=== PATIENT | male | born 1935 | race Caucasian/White ===

== ENCOUNTER 2024-11-06 04:43 | Emergency (ER) | payer MEDICARE ==
[~2024-11-06] VITALS: Ht 167.6 cm; Wt 81.6 kg
[2024-11-06 05:40] LABS: BASOPHILS % (AUTO) 0.5 % (0.0-2.0); EOSINOPHILS # (AUTO) 0.2 K/uL (0.0-0.7); EOSINOPHILS % (AUTO) 3.2 % (0.0-6.0); HEMATOCRIT 36 % (39-51); HEMOGLOBIN 12.3 g/dL (13.5-17.5); LYMPHOCYTES # (AUTO) 1.3 K/uL (0.8-4.8); LYMPHOCYTES % (AUTO) 25.3 % (20.0-44.0); MEAN CORPUSCULAR HEMOGLOBIN 30 PG (26.0-33.0); MEAN CORPUSCULAR HGB CONC 34 g/dl (31.0-36.0); MEAN CORPUSCULAR VOLUME 88 fL (80-96); MONOCYTES # (AUTO) 0.6 K/uL (0.1-1.30); MONOCYTES % (AUTO) 10.8 % (2.0-12.0); NEUTROPHILS # (AUTO) 3.2 K/uL (1.8-8.9); NEUTROPHILS % (AUTO) 60.2 % (43.0-81.0); PLATELET COUNT (AUTO) 167 K/uL (150-450); RED BLOOD CELL COUNT(AUTO) 4.08 MIL/uL (4.5-6.0); WHITE BLOOD COUNT (AUTO) 5.3 K/uL (4.3-11.0)
[2024-11-06 05:42] LABS: CALCIUM, SERUM 8.3 mg/dL (8.5-10.1); POTASSIUM 3.9 mmol/L (3.5-5.1)
[2024-11-06 05:48] LABS: ALBUMIN 3.4 g/dL (3.4-5.0); BILIRUBIN,DIRECT 0.2 mg/dL (0.0-0.2); BILIRUBIN,TOTAL 0.8 mg/dL (0.2-1.0); TOTAL PROTEIN, SERUM 6.9 g/dL (6.4-8.2)
[2024-11-06] MEDS ORDERED: HYDR-500 PO (05:56)
[2024-11-06] MEDS ORDERED: hydrOXYzine 10 MG TABLET ONE (06:03)
[2024-11-06] MEDS: hydrOXYzine 10 MG TABLET PO ONE (06:03)
[2024-11-06 06:15] VITALS: BP 138/88; TEMP 98.1; O2SAT 98
[2024-11-06 06:59] LABS: APPEARANCE,URINE CLEAR (CLEAR); BILIRUBIN,URINE NEGATIVE (NEGATIVE); BLOOD, URINE 1+ Ery/uL (NEGATIVE); COLOR,URINE YELLOW (YELLOW); KETONES,URINE NEGATIVE (NEGATIVE); LEUKOCYTE ESTERASE ,URINE 2+ (NEGATIVE); NITRITE, URINE NEGATIVE (NEGATIVE); PROTEIN,URINE NEGATIVE (NEGATIVE); UGLUCOSE NEGATIVE (NEGATIVE); UROBILINOGEN,URINE 0.2 EU/dL (0.2)
[2024-11-06 07:04] LABS: ADD URINE CULTURE YES; BACTERIA,URINE Few /HPF (None Seen); SQUAMOUS EPITHELIAL CELL,UR Rare /HPF (None Seen); WBC,URINE 21-50 /HPF (0-3)
== END 2024-11-06 07:02 | disposition home or self-care (01) ==
LOC: ER 04:45
DX: L29.9 Pruritus, unspecified (principal); T45.1X5A Adverse effect of antineoplastic and immunosuppressive drugs, initial encounter; C61 Malignant neoplasm of prostate; Y92.89 Other specified places as the place of occurrence of the external cause
CPT/HCPCS: 99283; 85025; 80048; 87086; 83690; 80076; 81001; 36415; Q0177

== ENCOUNTER 2025-03-01 18:57 | Inpatient (IN) | payer MEDICARE, OTHER ==
[~2025-03-01] VITALS: Ht 167.6 cm; Wt 82.6 kg
[~2025-03-01 18:57] MED LIST: HYDR-500 PO
[2025-03-01] MEDS: ALBUTEROL FS 2.5 MG/3 ML VIAL.NEB NEB ONE (19:14)
[2025-03-01] MEDS ORDERED: FUROSEMIDE 40 MG/4 ML VIAL ONE (19:17)
[2025-03-01] MEDS: FUROSEMIDE 40 MG/4 ML VIAL IV ONE (19:19)
[2025-03-01] MEDS ORDERED: ALBUTEROL FS 2.5 MG/3 ML VIAL.NEB ONE (19:24)
[2025-03-01 19:32] VITALS: O2SAT 96
[2025-03-01 19:36] LABS: BASOPHILS # (AUTO) 0.1 K/uL (0.0-0.2); BASOPHILS % (AUTO) 0.5 % (0.0-2.0); EOSINOPHILS % (AUTO) 0.4 % (0.0-6.0); HEMATOCRIT 40 % (39-51); HEMOGLOBIN 13.3 g/dL (13.5-17.5); LYMPHOCYTES # (AUTO) 2.5 K/uL (0.8-4.8); LYMPHOCYTES % (AUTO) 20.5 % (20.0-44.0); MEAN CORPUSCULAR HEMOGLOBIN 29 PG (26.0-33.0); MEAN CORPUSCULAR HGB CONC 34 g/dl (31.0-36.0); MEAN CORPUSCULAR VOLUME 87 fL (80-96); MONOCYTES # (AUTO) 0.4 K/uL (0.1-1.30); MONOCYTES % (AUTO) 3.4 % (2.0-12.0); NEUTROPHILS # (AUTO) 9.1 K/uL (1.8-8.9); NEUTROPHILS % (AUTO) 75.2 % (43.0-81.0); PLATELET COUNT (AUTO) 214 K/uL (150-450); RED BLOOD CELL COUNT(AUTO) 4.56 MIL/uL (4.5-6.0); RED CELL DISTRIBUTION WIDTH 14.7 % (11.5-15.0); WHITE BLOOD COUNT (AUTO) 12.1 K/uL (4.3-11.0)
[2025-03-01 19:42] LABS: CALCIUM, SERUM 8.8 mg/dL (8.5-10.1); CARBON DIOXIDE 23 mmol/L (21-32); CHLORIDE 106 mmol/L (98-107); CREATININE 1.1 mg/dL (0.6-1.3); GLUCOSE 167 mg/dL (74-106); POTASSIUM 3.3 mmol/L (3.5-5.1); SODIUM SERUM 141 mmol/L (136-145); UREA NITROGEN, BLOOD 17 mg/dL (7-18)
[2025-03-01 19:47] VITALS: O2SAT 91; O2SAT 92
[2025-03-01] MEDS ORDERED: METOPROLOL TARTRATE INJ 5 MG/5 ML AMPUL ONE (19:47)
[2025-03-01 19:51] LABS: ABG BASE EXCESS -3.2 mmol/L (-2.0-3.0); ABG OXYGEN SATURATION 96.7 % (94.0-98.0); ABG PCO2 29.7 mmHg (35.0-48.0); ABG PO2 87.8 mmHg (83.0-108.0); ABG TOTAL HEMOGLOBIN 13.8 G/dL (13.5-17.5); COHb 0.1 % (0.5-1.5); MetHb 0.2 % (0.0-1.5); O2Hb 96.4 % (94.0-97.0); SITE, ABG LEFT RADIAL
[2025-03-01 19:52] LABS: LACTIC ACID 2.5 mmol/L (0.4-2.0)
[2025-03-01 19:55] LABS: ALANINE AMINOTRANSFERASE 12 U/L (12-78); ALBUMIN 3.9 g/dL (3.4-5.0); ALKALINE PHOSPHATASE 52 U/L (46-116); ASPARTATE AMINOTRANSFERASE 16 U/L (15-37); BILIRUBIN,TOTAL 0.9 mg/dL (0.2-1.0); MAGNESIUM 2.1 mg/dL (1.8-2.4); NT-PRO BNP 401 pg/mL (0-125)
[2025-03-01] MEDS: METOPROLOL TARTRATE INJ 5 MG/5 ML AMPUL IV ONE (19:56)
[2025-03-01 20:12] LABS: BILIRUBIN,DIRECT 0.2 mg/dL (0.0-0.2)
[2025-03-01 20:35] LABS: INR 1.03 (0.91-1.10); PARTIAL THROMBOPLASTIN TIME 26.2 SEC (24.3-34.3); PROTHROMBIN TIME 10.9 SECS (9.2-11.1)
[2025-03-01] MEDS ORDERED: POTASSIUM CL. PREMIX PERIPHER. 50 ML ONE (20:36)
[2025-03-01] MEDS: POTASSIUM CL. PREMIX PERIPHER. 50 ML IV SCH (20:40)
[2025-03-01] MEDS ORDERED: PIPERACI/TAZO 3.375GM/D5W 50ML PB IV ONE (20:45)
[2025-03-01] MEDS ORDERED: VANCOMYCIN 1 GM /D5W 250 ML PB IV ONE (20:47)
[2025-03-01] MEDS ORDERED: AZITHROMYCIN 500 MG VIAL ONE (20:50)
[2025-03-01] MEDS: PIPERACILLIN /TAZOBACTAM 3.375 G in IV D5W 50 ML IV ONE (20:53)
[2025-03-01 21:00] LABS: APPEARANCE,URINE CLEAR (CLEAR); BILIRUBIN,URINE NEGATIVE (NEGATIVE); BLOOD, URINE 1+ Ery/uL (NEGATIVE); COLOR,URINE YELLOW (YELLOW); KETONES,URINE NEGATIVE (NEGATIVE); LEUKOCYTE ESTERASE ,URINE NEGATIVE (NEGATIVE); NITRITE, URINE NEGATIVE (NEGATIVE); PROTEIN,URINE TRACE mg/dl (NEGATIVE); UGLUCOSE NEGATIVE (NEGATIVE); UROBILINOGEN,URINE 0.2 EU/dL (0.2)
[2025-03-01 21:29] LABS: ADD URINE CULTURE NO; BACTERIA,URINE None seen /HPF (None Seen); WBC,URINE 0-2 /HPF (0-3)
[2025-03-01 21:30] LABS: MUCUS,URINE Few /LPF (None Seen)
[2025-03-01] MEDS: AZITHROMYCIN 500 MG in IV D5W 250 ML IV ONE (21:50)
[2025-03-01] MEDS: IV NS 0.9% 1,000 ML IV ONE (22:40)
[2025-03-02] VITALS (8 sets, daily range): BP systolic 103–118; BP diastolic 50–61; TEMP 99–99.7; O2SAT 92–98
[2025-03-02] MEDS: DOXYCYCLINE HYCLATE (100 MG) 100 MG TABLET PO SCH (01:00)
[2025-03-02] MEDS ORDERED: MAGNESIUM HYDROXIDE 30 ML UDC PO PRN (01:00)
[2025-03-02] MEDS ORDERED: Z GUARD REMEDY 4 OZ OINT TP PRN (01:00)
[2025-03-02] MEDS ORDERED: ACETAMINOPHEN 325 MG TABLET PO PRN (01:00)
[2025-03-02] MEDS: CEFEPIME 2 GM in IV D5W 100 ML IV SCH (01:00)
[2025-03-02] MEDS: ENOXAPARIN SODIUM 40 MG/0.4 ML DISP.SYRIN SQ SCH (01:00)
[2025-03-02] MEDS ORDERED: ONDANSETRON HCL/PF 4 MG/2 ML VIAL IVP PRN (01:00)
[2025-03-02] MEDS ORDERED: LEVALBUTEROL HCL NEB 1.25 MG/0.5 ML VIAL.NEB NEB PRN (01:30)
[2025-03-02] MEDS ORDERED: IPRATROPIUM NEB FS 0.5 MG/2.5 ML AMPUL.NEB NEB SCH (01:30)
[2025-03-02] MEDS ORDERED: ENOXAPARIN SODIUM 40 MG/0.4 ML DISP.SYRIN SQ ONE (03:37)
[2025-03-02] MEDS ORDERED: CEFEPIME 1 GM VIAL ONE (03:37)
[2025-03-02] MEDS ORDERED: DOXYCYCLINE HYCLATE (100 MG) 100 MG TABLET ONE (03:38)
[2025-03-02] MEDS: IV 1/2NS 1000 ML 1,000 ML IV PRN (06:29)
[2025-03-02] MEDS: PANTOPRAZOLE 40 MG TABLET.DR PO SCH (07:52)
[2025-03-02] MEDS: ALBUTEROL FS 2.5 MG/3 ML VIAL.NEB NEB SCH (13:30)
[2025-03-02] MEDS: IPRATROPIUM NEB FS 0.5 MG/2.5 ML AMPUL.NEB NEB SCH (13:30)
[2025-03-02] MEDS: ENOXAPARIN SODIUM 40 MG/0.4 ML DISP.SYRIN SQ ONE (14:10)
[2025-03-02] MEDS ORDERED: CT SWABBABLE VALVE TRANS SET 1 EA INFUS.SET MC ONE (14:24)
[2025-03-02] MEDS ORDERED: IOHEXOL-350 100 ML VIAL IV ONE (14:24)
[2025-03-02] MEDS: ATORVASTATIN 10 MG TABLET PO SCH (21:48)
[2025-03-02] MEDS: ENOXAPARIN SODIUM 80 MG/0.8 ML DISP.SYRIN SQ SCH (21:49)
[2025-03-03] VITALS (13 sets, daily range): BP systolic 103–136; BP diastolic 45–80; TEMP 97.9–98.8; O2SAT 93–100
[2025-03-03 08:01] LABS: BASOPHILS % (AUTO) 0.4 % (0.0-2.0); EOSINOPHILS % (AUTO) 0.1 % (0.0-6.0); HEMATOCRIT 37 % (39-51); HEMOGLOBIN 12.3 g/dL (13.5-17.5); LYMPHOCYTES # (AUTO) 0.9 K/uL (0.8-4.8); LYMPHOCYTES % (AUTO) 8.8 % (20.0-44.0); MEAN CORPUSCULAR HEMOGLOBIN 29 PG (26.0-33.0); MEAN CORPUSCULAR HGB CONC 33 g/dl (31.0-36.0); MEAN CORPUSCULAR VOLUME 88 fL (80-96); MONOCYTES # (AUTO) 0.4 K/uL (0.1-1.30); NEUTROPHILS # (AUTO) 8.4 K/uL (1.8-8.9); NEUTROPHILS % (AUTO) 86.7 % (43.0-81.0); PLATELET COUNT (AUTO) 160 K/uL (150-450); RED BLOOD CELL COUNT(AUTO) 4.19 MIL/uL (4.5-6.0); RED CELL DISTRIBUTION WIDTH 14.4 % (11.5-15.0); WHITE BLOOD COUNT (AUTO) 9.7 K/uL (4.3-11.0)
[2025-03-03 08:26] LABS: CALCIUM, SERUM 8.2 mg/dL (8.5-10.1); CREATININE 1.3 mg/dL (0.6-1.3); PHOSPHORUS 2.3 mg/dL (2.5-4.9); POTASSIUM 3.5 mmol/L (3.5-5.1)
[2025-03-03 08:31] LABS: LACTIC ACID 1.9 mmol/L (0.4-2.0)
[2025-03-03] MEDS: K PHOS NEUTRAL 250 MG TABLET PO ONE (16:35)
[2025-03-04] VITALS (9 sets, daily range): BP systolic 107–130; BP diastolic 50–58; TEMP 97.9–98.2; O2SAT 95–100
[2025-03-04 07:38] LABS: BASOPHILS % (AUTO) 0.4 % (0.0-2.0); EOSINOPHILS % (AUTO) 0.4 % (0.0-6.0); HEMATOCRIT 34 % (39-51); HEMOGLOBIN 11.7 g/dL (13.5-17.5); LYMPHOCYTES # (AUTO) 0.7 K/uL (0.8-4.8); LYMPHOCYTES % (AUTO) 8.7 % (20.0-44.0); MEAN CORPUSCULAR HEMOGLOBIN 30 PG (26.0-33.0); MEAN CORPUSCULAR HGB CONC 34 g/dl (31.0-36.0); MEAN CORPUSCULAR VOLUME 88 fL (80-96); MONOCYTES # (AUTO) 0.5 K/uL (0.1-1.30); NEUTROPHILS # (AUTO) 6.4 K/uL (1.8-8.9); NEUTROPHILS % (AUTO) 84.5 % (43.0-81.0); PLATELET COUNT (AUTO) 147 K/uL (150-450); RED BLOOD CELL COUNT(AUTO) 3.92 MIL/uL (4.5-6.0); RED CELL DISTRIBUTION WIDTH 14.3 % (11.5-15.0); WHITE BLOOD COUNT (AUTO) 7.6 K/uL (4.3-11.0)
[2025-03-04 07:48] LABS: CALCIUM, SERUM 8.3 mg/dL (8.5-10.1); CREATININE 1.2 mg/dL (0.6-1.3); MAGNESIUM 2.1 mg/dL (1.8-2.4); PHOSPHORUS 2.1 mg/dL (2.5-4.9); POTASSIUM 3.4 mmol/L (3.5-5.1)
[2025-03-04] MEDS: POTASSIUM CHLORIDE 20 MEQ TAB.PRT.SR PO SCH (10:32)
[2025-03-04] MEDS ORDERED: PANT40TA49 PO (11:25)
[2025-03-04] MEDS ORDERED: LEVO500T90 PO (11:25)
[2025-03-04] MEDS ORDERED: APIX5TAB4 PO (11:25)
[2025-03-04] MEDS ORDERED: ATOR10TA PO (11:25)
[2025-03-04] MEDS ORDERED: K PHOS NEUTRAL 250 MG TABLET PO ONE (16:00)
== END 2025-03-04 17:45 | disposition home health service (06) | DRG 871 ==
LOC: ER 18:59 → TELE1 03-02 01:15 → MEDSG1 03-04 11:31
PROVIDERS: ADMIT Nurse Practitioner Family; ATTEND Student in an Organized Health Care Education/Training Program
DX: A41.9 Sepsis, unspecified organism (principal); J15.69 Pneumonia due to other Gram-negative bacteria; J15.9 Unspecified bacterial pneumonia; J96.01 Acute respiratory failure with hypoxia; E87.20 Acidosis, unspecified; I82.413 Acute embolism and thrombosis of femoral vein, bilateral; N39.0 Urinary tract infection, site not specified; E87.6 Hypokalemia; K80.20 Calculus of gallbladder without cholecystitis without obstruction; R65.20 Severe sepsis without septic shock; C61 Malignant neoplasm of prostate; I10 Essential (primary) hypertension; I25.10 Atherosclerotic heart disease of native coronary artery without angina pectoris; I77.810 Thoracic aortic ectasia; B96.4 Proteus (mirabilis) (morganii) as the cause of diseases classified elsewhere; Z79.60 Long term (current) use of unspecified immunomodulators and immunosuppressants
CPT/HCPCS: 36415; 36600; 71045-TC; 76700-TC; 80048-TC; 80053-TC; 80061-TC; 80076-TC; 81001; 82803-TC; 83605-TC; 83735-TC; 83880; 84100-TC; 84484-TC; 85025-TC; 85730-TC; 87040-TC; 87081-TC; 87086-TC; 87186-TC; 93307-TC; 93970-TC; 94760-TC; 94799-TC; 97112-TC; 97116-TC; 97530-TC; A4223; G0378; J0456; J0692; J1650; J1938; J2543; J3370; J3480; J3490; J7030; J7060; Q9967

== ENCOUNTER 2025-07-21 03:39 | Inpatient (IN) | payer MEDICARE, OTHER ==
[2025-07-21] VITALS (8 sets, daily range): BP systolic 122–129; BP diastolic 64–73; TEMP 97.7–98; O2SAT 95–99
[~2025-07-21] VITALS: Ht 167.6 cm; Wt 70.8 kg
[~2025-07-21 03:39] MED LIST changes: +APIX5TAB4 PO; +ATOR10TA PO; +LEVO500T90 PO; +PANT40TA49 PO
[2025-07-21 04:02] LABS: PLATELET COUNT (AUTO) 240 K/uL (150-450); RED BLOOD CELL COUNT(AUTO) 3.85 MIL/uL (4.5-6.0); RED CELL DISTRIBUTION WIDTH 19.5 % (11.5-15.0); WHITE BLOOD COUNT (AUTO) 7.8 K/uL (4.3-11.0)
[2025-07-21 04:09] LABS: CALCIUM, SERUM 8.3 mg/dL (8.5-10.1); CREATININE 1.3 mg/dL (0.6-1.3); SODIUM SERUM 142.0 mmol/L (136-145); UREA NITROGEN, BLOOD 14.0 mg/dL (7-18)
[2025-07-21 04:15] LABS: ABG BASE EXCESS 0.2 mmol/L (-2.0-3.0); ABG OXYGEN SATURATION 93.6 % (94.0-98.0); ABG PCO2 32.4 mmHg (35.0-48.0); ABG PH 7.472 (7.350-7.450); ABG PO2 70.6 mmHg (83.0-108.0); ABG TOTAL HEMOGLOBIN 12.4 G/dL (13.5-17.5); FLOW, BLOOD GAS 3.00 L/min (0.00-30.00); FRACTIONATED INSPIRED OXYGEN 32.0 %; SITE, ABG LEFT RADIAL
[2025-07-21 04:24] LABS: ASPARTATE AMINOTRANSFERASE 34.0 U/L (15-37); NT-PRO BNP 3024.0 pg/mL (0-125); TOTAL PROTEIN, SERUM 7.3 g/dL (6.4-8.2)
[2025-07-21] MEDS ORDERED: FUROSEMIDE 40 MG/4 ML VIAL ONE (04:49)
[2025-07-21] MEDS ORDERED: POTASSIUM CHLORIDE 20 MEQ TAB.PRT.SR PO ONE (04:49)
[2025-07-21] MEDS ORDERED: Z GUARD REMEDY 4 OZ OINT TP PRN (05:00)
[2025-07-21] MEDS ORDERED: MAG HYDROX/AL HYDROX/SIMETH 30 ML UDC PO PRN (05:00)
[2025-07-21] MEDS ORDERED: ACETAMINOPHEN 325 MG TABLET PO PRN (05:00)
[2025-07-21] MEDS ORDERED: MAGNESIUM HYDROXIDE 30 ML UDC PO PRN (05:00)
[2025-07-21] MEDS ORDERED: ONDANSETRON HCL/PF 4 MG/2 ML VIAL IVP PRN (05:00)
[2025-07-21] MEDS: FUROSEMIDE 40 MG/4 ML VIAL IV ONE (05:01)
[2025-07-21] MEDS: POTASSIUM CHLORIDE 20 MEQ TAB.PRT.SR PO ONE (05:01)
[2025-07-21 05:13] LABS: LYMPHOCYTES % (MANUAL) 18 % (16-48); MONOCYTES % (MANUAL) 13 % (0-11.0); MYELOCYTES % 1 % (0-0); NEUTROPHILS % (MANUAL) 68 (42-76)
[2025-07-21 05:14] LABS: PLATELET ESTIMATE ADEQUATE
[2025-07-21] MEDS ORDERED: ENOX40DI SQ (07:55)
[2025-07-21] MEDS ORDERED: VALS1TAB7 PO (07:55)
[2025-07-21] MEDS ORDERED: ABIR250T2 PO (07:55)
[2025-07-21] MEDS ORDERED: SPIR25TA6 PO (07:55)
[2025-07-21] MEDS ORDERED: DONE10TA44 PO (07:55)
[2025-07-21] MEDS ORDERED: OLAP150T PO (07:55)
[2025-07-21] MEDS ORDERED: AMLO-213 PO (07:55)
[2025-07-21] MEDS ORDERED: EPOE4000 SQ (07:55)
[2025-07-21] MEDS ORDERED: IPRA3AMP23 IH (07:55)
[2025-07-21] MEDS ORDERED: ROSU10TA2 PO (07:55)
[2025-07-21] MEDS ORDERED: TAMS-12 PO (07:55)
[2025-07-21] MEDS ORDERED: METO25TA4 PO (07:55)
[2025-07-21] MEDS ORDERED: CALC-494 PO (07:55)
[2025-07-21] MEDS ORDERED: DUTA0.5C37 PO (07:55)
[2025-07-21] MEDS ORDERED: PANT40TA49 PO (07:55)
[2025-07-21] MEDS ORDERED: ERGO500093 PO (07:55)
[2025-07-21] MEDS ORDERED: ZOLP5TAB2 PO (07:55)
[2025-07-21] MEDS ORDERED: HYDR-4076 PO (07:55)
[2025-07-21] MEDS: IPRATROPIUM NEB FS 0.5 MG/2.5 ML AMPUL.NEB NEB SCH (09:00)
[2025-07-21] MEDS: PANTOPRAZOLE 40 MG TABLET.DR PO SCH (09:10)
[2025-07-21] MEDS: FUROSEMIDE 40 MG/4 ML VIAL IV SCH ×2 (09:43→15:22)
[2025-07-21] MEDS: APIXABAN 5 MG TABLET PO SCH (09:43)
[2025-07-21] MEDS: LEVOFLOXACIN 750 MG /D5W 150ML 150 ML IV ONE (10:29)
[2025-07-21] MEDS: PIPERACILLIN /TAZOBACTAM 3.375 G in IV D5W 50 ML IV SCH (11:58)
[2025-07-21] MEDS ORDERED: ZOLPIDEM TARTRATE 10 MG TABLET PO PRN (20:00)
[2025-07-21] MEDS: ZOLPIDEM TARTRATE 10 MG TABLET PO PRN (21:52)
[2025-07-22] VITALS (14 sets, daily range): BP systolic 121–126; BP diastolic 53–78; TEMP 97.9–99; O2SAT 94–100
[2025-07-22 06:03] LABS: PLATELET COUNT (AUTO) 207 K/uL (150-450); RED BLOOD CELL COUNT(AUTO) 3.88 MIL/uL (4.5-6.0); RED CELL DISTRIBUTION WIDTH 19.6 % (11.5-15.0); WHITE BLOOD COUNT (AUTO) 7.6 K/uL (4.3-11.0)
[2025-07-22 06:06] LABS: CALCIUM, SERUM 7.5 mg/dL (8.5-10.1); CREATININE 1.3 mg/dL (0.6-1.3); UREA NITROGEN, BLOOD 17.0 mg/dL (7-18)
[2025-07-22 06:10] LABS: LDL 71.0 mg/dL (0-99)
[2025-07-22 06:16] LABS: SODIUM SERUM 144.0 mmol/L (136-145)
[2025-07-22] MEDS: POTASSIUM CHLORIDE 20 MEQ TAB.PRT.SR PO ONE ×2 (10:04→15:37)
[2025-07-23] VITALS (15 sets, daily range): BP systolic 106–143; BP diastolic 56–75; TEMP 97.5–98.5; O2SAT 95–100
[2025-07-23 06:21] LABS: PLATELET COUNT (AUTO) 199 K/uL (150-450); RED BLOOD CELL COUNT(AUTO) 3.92 MIL/uL (4.5-6.0); RED CELL DISTRIBUTION WIDTH 18.8 % (11.5-15.0); WHITE BLOOD COUNT (AUTO) 6.7 K/uL (4.3-11.0)
[2025-07-23 06:36] LABS: CALCIUM, SERUM 7.6 mg/dL (8.5-10.1); CREATININE 1.2 mg/dL (0.6-1.3); SODIUM SERUM 145.0 mmol/L (136-145); UREA NITROGEN, BLOOD 16.0 mg/dL (7-18)
[2025-07-23] MEDS: POTASSIUM CHLORIDE 20 MEQ TAB.PRT.SR PO ONE (08:56)
[2025-07-23] MEDS: LEVOFLOXACIN 750 MG /D5W 150ML 750 MG in PREMIX 1 EA IV SCH (11:15)
[2025-07-23 14:56] LABS: CALCIUM, SERUM 7.4 mg/dL (8.5-10.1); CREATININE 1.2 mg/dL (0.6-1.3); SODIUM SERUM 144.0 mmol/L (136-145); UREA NITROGEN, BLOOD 18.0 mg/dL (7-18)
[2025-07-24] VITALS (9 sets, daily range): BP systolic 120–136; BP diastolic 62–72; TEMP 97.9–98.1; O2SAT 95–100
[2025-07-24 06:02] LABS: PLATELET COUNT (AUTO) 191 K/uL (150-450); RED BLOOD CELL COUNT(AUTO) 3.77 MIL/uL (4.5-6.0); RED CELL DISTRIBUTION WIDTH 18.4 % (11.5-15.0); WHITE BLOOD COUNT (AUTO) 7.3 K/uL (4.3-11.0)
[2025-07-24 06:12] LABS: CALCIUM, SERUM 7.7 mg/dL (8.5-10.1); CREATININE 0.9 mg/dL (0.6-1.3); SODIUM SERUM 144.0 mmol/L (136-145); UREA NITROGEN, BLOOD 15.0 mg/dL (7-18)
[2025-07-24] MEDS: POTASSIUM CHLORIDE 20 MEQ TAB.PRT.SR PO ONE (09:22)
[2025-07-24] MEDS ORDERED: LEVO500T90 PO (09:43)
== END 2025-07-24 14:22 | disposition hospice, home (50) | DRG 291 ==
LOC: ER 03:41 → TELE 07:36 → TELE-TD 07:58 → TELE1 07-22 08:57
PROVIDERS: ADMIT Internal Medicine; ATTEND Internal Medicine
DX: I11.0 Hypertensive heart disease with heart failure (principal); I50.33 Acute on chronic diastolic (congestive) heart failure; J96.21 Acute and chronic respiratory failure with hypoxia; E44.0 Moderate protein-calorie malnutrition; N17.9 Acute kidney failure, unspecified; E78.5 Hyperlipidemia, unspecified; Z79.01 Long term (current) use of anticoagulants; E87.6 Hypokalemia; Z86.19 Personal history of other infectious and parasitic diseases; Z86.718 Personal history of other venous thrombosis and embolism; Z85.46 Personal history of malignant neoplasm of prostate; Z99.81 Dependence on supplemental oxygen; Z79.899 Other long term (current) drug therapy; Z79.51 Long term (current) use of inhaled steroids; C61 Malignant neoplasm of prostate; Z51.5 Encounter for palliative care; E83.51 Hypocalcemia; E88.09 Other disorders of plasma-protein metabolism, not elsewhere classified; I42.9 Cardiomyopathy, unspecified; I70.0 Atherosclerosis of aorta; T50.2X5A Adverse effect of carbonic-anhydrase inhibitors, benzothiadiazides and other diuretics, initial encounter; Y92.9 Unspecified place or not applicable; N40.0 Benign prostatic hyperplasia without lower urinary tract symptoms
CPT/HCPCS: 36415; 36600; 71045-TC; 76770-TC; 80048-TC; 80053-TC; 80061-TC; 82803-TC; 83735-TC; 83880; 84100-TC; 84132-TC; 84484-TC; 85025-TC; 85027-TC; 86140-TC; 87081-TC; 93307-TC; 94762-TC; 94799-TC; 97110-TC; 97116-TC; 97530-TC; A4216; A4223; G0378; J1938; J1956; J2543; J7050; J7060; J7070